=== PATIENT | female | born 1985 | race Caucasian/White ===

== ENCOUNTER 2016-11-09 10:07 | Emergency (ER) | payer OTHER ==
[~2016-11-09] VITALS: Ht 160 cm; Wt 88.4 kg
[~2016-11-09 10:07] MED LIST: ALBUAER2 PO; MOME220A INH; SUMA50TA15 PO
[2016-11-09 10:20] VITALS: TEMP 36.9; Ht 160 cm; Wt 88.4 kg
--- NOTE | 2016-11-09 10:43 | EMERGENCY ROOM VISIT NOTE ---
History Report prepared by Jose Alberto: Edu Frederick Under the Supervision of: Dr. Tacho Singh M.D. First contact with patient: 10:31 Chief Complaint: BACK PAIN Stated Complaint: 6 WKS. PREG., LOWER BACK/ABD PAIN History of Present Illness The patient is a 31 year old female that is five weeks five days who presents to the Emergency Room with complaints of persistent back pain since last night. The pain is rated 2/10 in severity. The patient also has pain in the suprapubic area. She denies any fevers, chills, urinary symptoms, problems moving her bowels, or vaginal bleeding. The patient is concerned about an ectopic . She was encouraged to come to the ED by her Seat Cover Installer. The was artificially inseminated. The patient had a quantitative BHCG of 1367 on 11/06. She is currently using progesterone vaginal suppositories. Source of History: patient Onset: last night Position: back Symptom Intensity: 2/10 Timing: other (persistent) Associated Symptoms: No chills, No fevers, No urinary symptoms Review of Systems All systems have been listed, reviewed, and are negative other than those previously mentioned. Please see Additional Medical History Sheet. Past Medical & Surgical Medical Problems: (1) Asthma (2) Kidney stones Family History Cancer Gallbladder disease Heart disease Hypertension Kidney disease Kidney stones Lung disease Social History Smoking Status: Never Smoker Alcohol Use: none Drug Use: none Marital Status: Housing Status: lives with family Occupation Status: employed Current/Historical Medications Scheduled Mometasone Furoate (Asmanex 120 Metered Doses), 1 PUFF INH BID Sumatriptan Succinate (Imitrex), 1 TAB PO UD Scheduled PRN Albuterol (Ventolin Hfa), 1 PUFF PO DAILY PRN for Shortness of Breath Allergies Coded Allergies: Tetracycline (Unverified Adverse Reaction, Intermediate, STOMACH ACHE, 11/09) Physical Exam Vital Signs Date Time Temp Pulse Resp B/P Pulse Ox O2 Delivery O2 Flow Rate FiO2 11/09/16 13:57 96 18 137/95 99 11/09/16 10:20 36.9 93 18 120/77 99 Room Air Physical Exam GENERAL: Patient awake, alert, oriented x 3. Patient follows commands. Patient does not appear toxic. Patient is adequately hydrated and well- nourished. SKIN: No erythema, pallor, cyanosis or rash HEENT: Ears normal. Oral cavity and posterior pharynx appear normal. Neck: Without adenopathy, no neck vein distention. LUNGS: Clear to auscultation. No wheezes, no rales, no rhonchi. HEART: No murmurs. No gallops. No rubs ABDOMEN: No masses, no rebound, no hepatomegaly or splenomegaly. Slight suprapubic tenderness. EXTREMITIES: No signs of trauma or infection. NEUROLOGIC: Cranial nerves II-XII within normal limits. No gross motor sensory function deficits. Medical Decision & Procedures ER Provider Diagnostic Interpretation: Radiology results as stated below per my review and radiologist interpretation: ULTRASOUND CLINICAL HISTORY: Back and pelvic pain. 5 weeks . COMPARISON STUDY: No previous studies for comparison. TECHNIQUE: Transabdominal and transvaginal sonography of the pelvis was performed. FINDINGS: The uterus measures 8.3 x 4.2 x 5.4 cm. The endometrium measures 1.3 cm in thickness. There is trace fluid within the endometrial canal. No intrauterine gestational sac is identified. No adnexal masses are identified. The right ovary measures 4.8 x 2.9 x 2.3 cm and contains a 2.2 cm complex cystic lesion. The left ovary measures 3.2 x 2.5 x 1.8 cm. Color flow is identified within each ovary. There was no free fluid. IMPRESSION: 1. No intrauterine gestational sac or adnexal mass identified. Assuming a positive test, differential considerations include a normal early intrauterine gestation, sonographically occult ectopic or missed spontaneous . Clinical follow-up, including serial beta hCG levels, is recommended. 2. Suspected right ovarian corpus luteal cyst. Electronically signed by: Bassam Stevens M.D. 11/09/2016 12:08 PM Dictated Date/Time: 11/09/2016 12:04 PM Laboratory Results 11/09/16 11:11 11/09/16 11:11 Test 11/09/16 11:00 11/09/16 11:11 Urine Color DK YELLOW Urine Appearance TURBID (CLEAR) Urine pH 5.5 (4.5-7.5) Urine Specific [place] 1.027 (1.000-1.030) Urine Protein NEG (NEG) Urine Glucose (UA) NEG (NEG) Urine Ketones 1+ (NEG) Urine Occult Blood NEG (NEG) Urine Nitrite NEG (NEG) Urine Bilirubin NEG (NEG) Urine Urobilinogen NEG (NEG) Urine Leukocyte Esterase TRACE (NEG) Urine WBC (Auto) 10-30 /hpf (0-5) Urine RBC (Auto) 10-30 /hpf (0-4) Urine Hyaline Casts (Auto) 1-5 /lpf (0-5) Urine Epithelial Cells (Auto) >30 /lpf (0-5) Urine Bacteria (Auto) 1+ (NEG) Urine Crystals (NONE PRSENT) Red Blood Count 4.75 M/uL (4.2-5.4) Mean Corpuscular Volume 93.3 fL (80-100) Mean Corpuscular Hemoglobin 33.1 pg (25-34) Mean Corpuscular Hemoglobin Concent 35.4 g/dl (32-36) RDW Standard Deviation 46.9 fL (36.4-46.3) RDW Coefficient of Variation 13.7 % (11.5-14.5) Mean Platelet Volume 11.8 fL (7.4-10.4) Anion Gap 11.0 mmol/L (3-11) Est Creatinine Clear Calc Drug Dose 130.6 ml/min Estimated GFR () 137.7 Estimated GFR (Non- 118.8 BUN/Creatinine Ratio 9.6 (10-20) Calcium Level 8.8 mg/dl (8.5-10.1) Human Chorionic Gonadotropin, Quant 5580 mIU/mL Chemistry Specimen Hemolysis Laboratory results as stated above per my review. ED Course 1030: Past medical records reviewed. The patient was evaluated in room A4b. A complete history and physical examination was performed. 1218: Explained the results to her. Attempting to get a hold of Dr. Buckner, her fertility doctor. 1338: Spoke with Dr. Buckner. He does not recommend any recommendations at this time. The patient should be advised to avoid intercourse and strenuous activity. She can follow up with him. 1344: Explained everything to her. She verbalized understanding and agreement of the treatment plan. The patient is ready for discharge. Medical Decision I considered multiple diagnoses including ectopic , musculoskeletal pain, pelvic pain secondary to . Patient is here with suprapubic pain. She is concerned about an ectopic . An ultrasound was obtained but was too early to show either an intrauterine or ectopic . Quantitative beta-hCG is significantly higher than it was only a few days ago. Case was discussed with her fertility systems analysis manager. Who suggested no further action is required at this time. The patient's urinalysis is consistent with a urinary tract infection. The patient will be treated with Keflex. Patient does have a corpus luteal cyst which could also be the source of her pain. A Prescription for Keflex was called to her pharmacy. Consults Time Called: 1230 Consulting Physician: Dr. Buckner, Engagement Executive Returned Call: [phone]: Spoke with Dr. Buckner. He does not recommend any recommendations at this time. The patient should be advised to avoid intercourse and strenuous activity. She can follow up with him. Impression Primary Impression: Pelvic pain affecting in first trimester, antepartum Additional Impression: Urinary tract infection affecting care of mother in first trimester, antepartum Scribe Attestation The scribe's documentation has been prepared under my direction and personally reviewed by me in its entirety. I confirm that the note above accurately reflects all work, treatment, procedures, and medical decision making performed by me. Departure Information Dispostion Home / Self-Care Referrals No Doctor, Assigned (PCP) Forms HOME CARE DOCUMENTATION FORM, IMPORTANT VISIT INFORMATION, Work Instructions Patient Instructions My [facility] Additional Instructions Follow-up with Dr. Buckner on Sunday. No lifting or straining or sexual intercourse until cleared by Dr. Buckner Return here immediately if the pain gets worse or you develop vaginal bleeding. Problem Qualifiers
[2016-11-09 11:20] LABS: HEMATOCRIT 44.3 % (37-47); MEAN CELL VOLUME 93.3 fL (80-100); MEAN CORPUSCULAR HEMOGLOBIN 33.1 pg (25-34); MEAN CORPUSCULAR HGB CONC 35.4 g/dl (32-36); MEAN PLATELET VOLUME 11.8 fL (7.4-10.4); PLATELET COUNT 217 K/uL (130-400); RED BLOOD COUNT 4.75 M/uL (4.2-5.4)
[2016-11-09 11:56] LABS: BUN/CREATININE RATIO 9.6 (10-20); CALCIUM 8.8 mg/dl (8.5-10.1); CREATININE 0.67 mg/dl (0.60-1.20); POTASSIUM 4.1 mmol/L (3.5-5.1)
--- NOTE | 2016-11-09 12:10 | DIAGNOSTIC IMAGING REPORT ---
ULTRASOUND CLINICAL HISTORY: Back and pelvic pain. 5 weeks . COMPARISON STUDY: No previous studies for comparison. TECHNIQUE: Transabdominal and transvaginal sonography of the pelvis was performed. FINDINGS: The uterus measures 8.3 x 4.2 x 5.4 cm. The endometrium measures 1.3 cm in thickness. There is trace fluid within the endometrial canal. No intrauterine gestational sac is identified. No adnexal masses are identified. The right ovary measures 4.8 x 2.9 x 2.3 cm and contains a 2.2 cm complex cystic lesion. The left ovary measures 3.2 x 2.5 x 1.8 cm. Color flow is identified within each ovary. There was no free fluid. IMPRESSION: 1. No intrauterine gestational sac or adnexal mass identified. Assuming a positive test, differential considerations include a normal early intrauterine gestation, sonographically occult ectopic or missed spontaneous . Clinical follow-up, including serial beta hCG levels, is recommended. 2. Suspected right ovarian corpus luteal cyst. Electronically signed by: Bassam Stevens M.D. 11/09/2016 12:08 PM Dictated Date/Time: 11/09/2016 12:04 PM
[2016-11-09 13:57] VITALS: BP 137/95; PULSE 96; O2SAT 99
[2016-11-09 14:20] LABS: URINE APPEARANCE TURBID (CLEAR); URINE BILIRUBIN NEG (NEG); URINE COLOR DK YELLOW; URINE EPITHELIAL CELL AUTO >30 /lpf (0-5); URINE NITRITE NEG (NEG); URINE PH 5.5 (4.5-7.5); URINE SPECIFIC GRAVITY 1.027 (1.000-1.030); UROBILINOGEN NEG (NEG); ZZUR CULT IF INDIC CLEAN CATCH YES
[2016-11-09 14:24] LABS: MANUAL MICROSCOPIC REQUIRED? NO; REVIEW REQ? YES
== END 2016-11-09 14:04 | disposition home or self-care (01) ==
LOC: C.EDB 10:09 → C.EDA 14:04
DX: O23.41 Unspecified infection of urinary tract in pregnancy, first trimester (principal); Z3A.01 Less than 8 weeks gestation of pregnancy

== ENCOUNTER → 2017-02-07 | Outpatient (CLI) | payer OTHER ==
[~2017-02-07] MED LIST changes: +VNTHFA/IN INH
--- NOTE | 2017-02-07 17:21 | DIAGNOSTIC IMAGING REPORT ---
VENOUS DOPPLER RIGHT ARM UPPER EXTREMITY VENOUS DOPPLER HISTORY: Pain. Edema. RIGHT UPPER ARM PAIN Right COMPARISON STUDY: None. FINDINGS: The internal jugular vein is patent. There is normal flow within the subclavian vein. There is normal flow and compressibility within the left axillary, basilic, brachial, radial, ulnar, and visualized cephalic veins. IMPRESSION: No DVT within the upper extremity. Electronically signed by: Terrance Birmingham M.D. 02/07/2017 5:19 PM Dictated Date/Time: 02/07/2017 5:19 PM
== END | disposition home or self-care (01) ==
LOC: C.ULTR 16:25
PROVIDERS: ATTEND Nurse Practitioner
DX: M79.621 Pain in right upper arm (principal)

== ENCOUNTER 2017-04-07 17:00 | Emergency (ER) | payer OTHER ==
[~2017-04-07] VITALS: Ht 157.5 cm; Wt 92.4 kg
[~2017-04-07 17:00] MED LIST changes: -VNTHFA/IN INH
[2017-04-07 17:01] VITALS: TEMP 37.1; Ht 157.5 cm; Wt 92.4 kg
[2017-04-07] MEDS ORDERED: VNTHFA/IN INH (17:38)
[2017-04-07] MEDS ORDERED: SUMA50TA15 PO (17:38)
[2017-04-07] MEDS ORDERED: MOME220A INH (17:38)
--- NOTE | 2017-04-07 18:42 | DIAGNOSTIC IMAGING REPORT ---
ULTRASOUND LEFT VENOUS DOPP LOWER EXT UNILAT CLINICAL HISTORY: Left leg swelling COMPARISON STUDY: No previous studies for comparison. FINDINGS: Real-time and color flow Doppler imaging were performed. Flow was seen within the femoral, popliteal and calf veins with no intraluminal thrombus demonstrated. The saphenous vein is patent. IMPRESSION: No evidence of left lower extremity DVT. Electronically signed by: Carter Orosco M.D. 04/07/2017 6:40 PM Dictated Date/Time: 04/07/2017 6:40 PM
--- NOTE | 2017-04-07 18:45 | EMERGENCY ROOM VISIT NOTE ---
ED Visit Note First contact with patient: 17:06 CHIEF COMPLAINT: Left calf pain since yesterday HISTORY OF PRESENT ILLNESS: Patient is a 31-year-old white female who presents emergency department for evaluation of left calf pain. She noticed some discomfort behind the left knee yesterday, but states that it worsened and became more constant today. She describes it as a cramping sensation behind her knee, radiating into the top of her calf. 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 She had a laparotomy and evacuation of an ectopic about 4 months ago. She is not presently on any hormone supplementation or control pills. There is no personal or family history of a DVT or PE. She does not smoke. No long car or plane trips recently. She has no symptoms in the right leg. She noticed a sensation of some left-sided chest squeezing earlier today. It was mild in nature, lasted her less than 30 minutes and at the present time she is asymptomatic regarding her chest complaints. She tried some Pepto-Bismol thinking that it could be GI related. She does also have a history of asthma. She denies any shortness of breath. No cough or wheezing. She is concerned about a clot in her leg. REVIEW OF SYSTEMS: Review of systems as per HPI. All other systems reviewed were negative. At least 6 systems reviewed. PMH: Electronic medical records are reviewed and summarized as above/below. See Problem List. SOCIAL HISTORY: Patient lives at home with her spouse. She does not smoke. She is employed. PHYSICAL EXAM: Vital Signs: Reviewed Nurse's notes. CONSTITUTIONAL: Patient is a pleasant, well-appearing 31-year-old white female who is awake and alert and in no acute distress. HEENT: Normocephalic, atraumatic. Pupils equal, round, reactive to light and accommodation. EOMs intact without nystagmus. Sclera are anicteric. Tympanic membranes intact, with normal landmarks. External canals are clear. Oral and nasopharynx are clear. Mucous membranes are moist. HEART: Regular rate and rhythm. LUNGS: Clear to auscultation and breath sounds equal, no wheezes, rales, or rhonchi. NEUROLOGICAL: Alert oriented, coherent. PERRL, EOMs full, gait normal. EXTREMITIES: No cyanosis, edema, joint tenderness or effusion. Pulses equal bilaterally. There is no increased redness, warmth or induration of the left calf. Tenderness is not reproducible to palpation. No cords can be palpated and Courtney's sign is negative. No rashes are noted. There is no lymphangitic streaking. Left knee is nontender to palpation. No joint effusion noted. Full range of motion. EMERGENCY DEPARTMENT COURSE: Patient was seen and evaluated as above. Her old records are reviewed. She presents emergency department for evaluation of some calf pain. She is concerned because she has a fairly sedentary job, otherwise does not have any other DVT or PE risk factors. Vital signs are stable. She is not tachycardic or tachypneic. Ultrasound of the left lower extremity did not demonstrate any evidence for DVT. Pulmonary embolus was felt to be unlikely. Differential diagnoses entertained include DVT, superficial thrombophlebitis, cellulitis, musculoskeletal injury, among others. The patient was reassured. She was educated on the worrisome signs or symptoms for which she should return to the emergency department. She is discharged home in good condition. ULTRASOUND LEFT VENOUS DOPP LOWER EXT UNILAT CLINICAL HISTORY: Left leg swelling COMPARISON STUDY: No previous studies for comparison. FINDINGS: Real-time and color flow Doppler imaging were performed. Flow was seen within the femoral, popliteal and calf veins with no intraluminal thrombus demonstrated. The saphenous vein is patent. IMPRESSION: No evidence of left lower extremity DVT. Medication reconciliation: I attest that I have personally reviewed the patient' s current medication list. Blood pressure screening : Patient was found to have normal blood pressure on screening and does not require follow-up. Problem List Medical Problems: (1) Asthma Status: Chronic (2) Headache Status: Resolved (3) Kidney stones Status: Resolved (4) Pelvic pain affecting in first trimester, antepartum Status: Resolved (5) Pelvic pain affecting in first trimester, antepartum Status: Resolved (6) Urinary tract infection affecting care of mother in first trimester, antepartum Status: Resolved Surgical Problems: (1) History of laparotomy Permanent Comment: Ruptured ectopic Status: Resolved Current/Historical Medications Scheduled Mometasone Furoate (Inhalation (Asmanex Twisthaler 120 Me), 1 PUFF INH BID Scheduled PRN Albuterol Hfa (Ventolin Hfa), 1 PUFFS INH QID PRN for Shortness of Breath Sumatriptan Succinate (Imitrex), 50 MG PO DIRECTED PRN for Migraine Allergies Coded Allergies: Tetracycline (Verified Adverse Reaction, Intermediate, STOMACH ACHE WITH VOMITING, 04/07/17) Vital Signs Date Time Temp Pulse Resp B/P (MAP) Pulse Ox O2 Delivery O2 Flow Rate FiO2 04/07/17 19:01 72 18 122/66 98 04/07/17 18:13 78 18 112/61 98 Room Air 04/07/17 17:01 37.1 89 20 125/67 99 Room Air Departure Information Impression Primary Impression: Pain of left calf Referrals No Doctor, Assigned (PCP) Patient Instructions My [facility] Additional Instructions Ibuprofen(Motrin, Advil) may be used for fever or pain. Use 600mg every six hours as needed. Take with food. Avoid using more than 2400mg in a 24 hour period. Do not use 2400mg per day for more than three consecutive days without physician direction. Prolonged inappropriate use can lead to stomach upset or ulcers. This medication can be taken if you need to drive, work, or perform activities which may be dangerous when taking narcotic pain medication. (AND/OR) Acetaminophen(Tylenol) may be used for fever or pain. Use 1000mg every six hours as needed. Avoid using more than 3000mg in a 24 hour period. This medication can be taken if you need to drive, work, or perform activities which may be dangerous when taking narcotic pain medication. Activity as tolerated. Continue current medications. Return to the ER immediately for worsening or persistent chest pain, vomiting, fevers, difficulty breathing, worsening of your condition, or as needed. Follow up with your primary physician in 2-3 days for a recheck of your current condition.
[2017-04-07 19:01] VITALS: BP 122/66; PULSE 72; O2SAT 98
== END 2017-04-07 19:02 | disposition home or self-care (01) ==
LOC: C.EDB 17:00
DX: M79.662 Pain in left lower leg (principal); J45.909 Unspecified asthma, uncomplicated

== ENCOUNTER 2017-07-22 19:41 | Emergency (ER) | payer OTHER ==
[~2017-07-22] VITALS: Ht 160 cm; Wt 93.6 kg
[~2017-07-22 19:41] MED LIST changes: -ALBUAER2 PO; +VNTHFA/IN INH
[2017-07-22 19:46] VITALS: Ht 160 cm; Wt 93.6 kg
--- NOTE | 2017-07-22 20:51 | EMERGENCY ROOM VISIT NOTE ---
History First contact with patient: 20:34 Chief Complaint: PELVIC PAIN Stated Complaint: SEVERE LOWER PELVIC PAIN, 1WK AFTER AI History of Present Illness The patient is a 31 year old female who presents to the Emergency Room with complaints of severe lower abdominal pain that she describes as a severe cramping sensation that started immediately after having an orgasm. The patient was having sex with her prior to arrival. She had an orgasm, and then felt this intense pain. She took an ibuprofen 800 mg, which helped slightly with the pain. She denies any bleeding. No discharge. The patient underwent artificial insemination [address] Esquivel at [facility]. Of note, the patient also has a history of a right ovarian ectopic for which she needed surgery in November of this year. She says that this pain feels similar. Review of Systems 10 system review performed and negative unless noted in HPI or below Past Medical/Surgical History Medical Problems: (1) Asthma (2) Headache (3) Kidney stones (4) Pelvic pain affecting in first trimester, antepartum (5) Pelvic pain affecting in first trimester, antepartum (6) Urinary tract infection affecting care of mother in first trimester, antepartum Surgical Problems: (1) History of laparotomy Status post ovarian ectopic Family History Cancer Gallbladder disease Heart disease Hypertension Kidney disease Kidney stones Lung disease Social History Smoking Status: Never Smoker Alcohol Use: none Drug Use: none Marital Status: Housing Status: lives with family Occupation Status: employed Current/Historical Medications Scheduled Mometasone Furoate (Inhalation (Asmanex Twisthaler 120 Me), 1 PUFF INH BID Scheduled PRN Albuterol Hfa (Ventolin Hfa), 2 PUFFS INH QID PRN for Shortness of Breath Sumatriptan Succinate (Imitrex), 50 MG PO UD PRN for Migraine Physical Exam Vital Signs Date Time Temp Pulse Resp B/P (MAP) Pulse Ox O2 Delivery O2 Flow Rate FiO2 07/22/17 23:55 83 18 120/72 96 Room Air 07/22/17 19:46 36.8 99 18 130/81 97 Room Air Physical Exam VITALS: Vitals are noted on the nurse's note and reviewed by myself. Vital signs stable. GENERAL: 31-year-old female, in no acute distress, nondiaphoretic, well- developed well-nourished. SKIN: The skin was without rashes, erythema, edema, or bruising. HEAD: Normocephalic atraumatic. HEART: Regular rate and rhythm without murmurs gallops or rubs. LUNGS: Clear to auscultation bilaterally without wheezes, rales or rhonchi. No accessory muscle use. ABDOMEN: Positive bowel sounds x 4.Soft, tenderness to palpation in the left lower quadrant and suprapubic region No rebound tenderness. MUSCULOSKELETAL: No muscle atrophy, erythema, or edema noted. Strength 5/5 throughout. NEURO: Patient was alert and oriented to person place and time. Normal sensation to touch. No focal neurological deficits. Medical Decision & Procedures ER Provider Diagnostic Interpretation: pelvic US IMPRESSION: 1. Bilateral ovarian hemorrhagic cysts 2. Free fluid within the pelvis containing a nonspecific 14 mm ovoid soft tissue nodule. Electronically signed by: Carter Orosco M.D. 07/22/2017 10:51 PM Dictated Date/Time: 07/22/2017 10:45 PM The status of this Laboratory Results 07/22/17 21:44 Red Blood Count 4.62, Mean Corpuscular Volume 92.4, Mean Corpuscular Hemoglobin 31.6, Mean Corpuscular Hemoglobin Concent 34.2, Mean Platelet Volume 11.0, Neutrophils (%) (Auto) 84.5, Lymphocytes (%) (Auto) 8.1, Monocytes (%) (Auto) 6.7, Eosinophils (%) (Auto) 0.2, Basophils (%) (Auto) 0.3, Neutrophils # (Auto) 13.65, Lymphocytes # (Auto) 1.31, Monocytes # (Auto) 1.09, Eosinophils # (Auto) 0.04, Basophils # (Auto) 0.05 07/22/17 21:44 Test 07/22/17 21:44 07/22/17 21:50 White Blood Count 16.18 K/uL (4.8-10.8) Red Blood Count 4.62 M/uL (4.2-5.4) Hemoglobin 14.6 g/dL (12.0-16.0) Hematocrit 42.7 % (37-47) Mean Corpuscular Volume 92.4 fL (80-100) Mean Corpuscular Hemoglobin 31.6 pg (25-34) Mean Corpuscular Hemoglobin Concent 34.2 g/dl (32-36) Platelet Count 280 K/uL (130-400) Mean Platelet Volume 11.0 fL (7.4-10.4) Neutrophils (%) (Auto) 84.5 % Lymphocytes (%) (Auto) 8.1 % Monocytes (%) (Auto) 6.7 % Eosinophils (%) (Auto) 0.2 % Basophils (%) (Auto) 0.3 % Neutrophils # (Auto) 13.65 K/uL (1.4-6.5) Lymphocytes # (Auto) 1.31 K/uL (1.2-3.4) Monocytes # (Auto) 1.09 K/uL (0.11-0.59) Eosinophils # (Auto) 0.04 K/uL (0-0.5) Basophils # (Auto) 0.05 K/uL (0-0.2) RDW Standard Deviation 43.5 fL (36.4-46.3) RDW Coefficient of Variation 12.9 % (11.5-14.5) Immature Granulocyte % (Auto) 0.2 % Immature Granulocyte # (Auto) 0.04 K/uL (0.00-0.02) Anion Gap 9.0 mmol/L (3-11) Est Creatinine Clear Calc Drug Dose 111.4 ml/min Estimated GFR () 113.8 Estimated GFR (Non- 98.1 BUN/Creatinine Ratio 14.6 (10-20) Calcium Level 8.7 mg/dl (8.5-10.1) Total Bilirubin 0.3 mg/dl (0.2-1) Aspartate Amino Transf (AST/SGOT) 12 U/L (15-37) Alanine Aminotransferase (ALT/SGPT) 15 U/L (12-78) Alkaline Phosphatase 78 U/L (45-117) Total Protein 7.7 gm/dl (6.4-8.2) Albumin 4.0 gm/dl (3.4-5.0) Globulin 3.7 gm/dl (2.5-4.0) Albumin/Globulin Ratio 1.1 (0.9-2) Human Chorionic Gonadotropin, Quant 20 mIU/mL Urine Color YELLOW Urine Appearance CLEAR (CLEAR) Urine pH 6.5 (4.5-7.5) Urine Specific [place] 1.022 (1.000-1.030) Urine Protein NEG (NEG) Urine Glucose (UA) NEG (NEG) Urine Ketones NEG (NEG) Urine Occult Blood NEG (NEG) Urine Nitrite NEG (NEG) Urine Bilirubin NEG (NEG) Urine Urobilinogen NEG (NEG) Urine Leukocyte Esterase NEG (NEG) ED Course Patient was seen and examined Vital signs including blood pressure were reviewed medications list was verified with patient Labs were obtained, and a saline lock was established The patient declined pain medication Imaging was performed and reviewed The findings were discussed with Dr. Hernandez, [employer] at [facility]. The patient was reassessed. Her pain was from a 10/10 to a 5/10. We discussed the results of her workup. She voiced understanding. She was comfortable being discharged home. The patient was given 1 dose of Tylenol 1 g I reviewed discharge instructions the patient. They voiced understanding and had no further questions. Medical Decision Differential diagnosis: Ovarian cyst, ovarian torsion, ectopic , severe menstrual cramping This patient is a 31-year-old female that presented to the emergency department complaining of severe lower abdominal pain following an orgasm/sexual intercourse. On exam, the patient was tender in the left lower quadrant. Her workup revealed a white count of 16,000. Her hCG is 20. The patient underwent artificial insemination 6 days ago. A pelvic ultrasound showed bilateral hemorrhagic cysts. It also showed free fluid in the cul-de-sac with a possible small nodule. These findings were discussed with the patient's [employer] service in [facility]. They did not think that this was consistent with an ectopic . They were also not concerned with the bilateral hemorrhagic cyst. The etiology of her pain is unclear. I do however feel that she is stable to be discharged home as her pain has improved during her emergency department stay. She does not have an acute abdomen. The patient will follow- up with her [employer] in [facility] tomorrow. She was comfortable with this plan. She was instructed to avoid NSAIDs. She will be instructed to take Tylenol for pain. She will return immediately to the emergency department with any worsening symptoms. This chart was completed in part utilizing [employer] Speech Voice Recognition software. Attempts were made to minimize the grammatical errors, random word insertions, pronoun errors and incomplete sentences. Any formal questions or concerns about the content, text or information contained within the body of this dictation should be directly addressed to the provider for clarification. Consults Consulting Physician: Dr. Hernandez/Dr. Buckner Impression Primary Impression: Pelvic pain Departure Information Dispostion Home / Self-Care Condition FAIR Referrals No Doctor, Assigned (PCP) Patient Instructions [facility] Additional Instructions You were evaluated in the emergency department with severe pelvic pain following intercourse. Please rest, no strenuous activity. Avoid sexual activity. Please call Dr. Buckner in the morning for a follow-up appointment. He will see you tomorrow. Please return to the emergency department immediately for any worsening symptoms such as increased pain, vaginal bleeding, lightheadedness or dizziness , or any other new concerning symptoms.
[2017-07-22 21:53] LABS: BASO % 0.3 %; BASO ABS # 0.05 K/uL (0-0.2); COMPLETE YES; EOS % 0.2 %; HEMATOCRIT 42.7 % (37-47); IG% 0.2 %; LYMPH % 8.1 %; LYMPH ABS # 1.31 K/uL (1.2-3.4); MEAN CELL VOLUME 92.4 fL (80-100); MEAN CORPUSCULAR HEMOGLOBIN 31.6 pg (25-34); MEAN CORPUSCULAR HGB CONC 34.2 g/dl (32-36); MONO % 6.7 %; NEUT % 84.5 %; PLATELET COUNT 280 K/uL (130-400); RED BLOOD COUNT 4.62 M/uL (4.2-5.4); WHITE BLOOD COUNT 16.18 K/uL (4.8-10.8)
[2017-07-22 21:58] LABS: URINE APPEARANCE CLEAR (CLEAR); URINE BILIRUBIN NEG (NEG); URINE COLOR YELLOW; URINE NITRITE NEG (NEG); URINE PH 6.5 (4.5-7.5); URINE SPECIFIC GRAVITY 1.022 (1.000-1.030); UROBILINOGEN NEG (NEG)
[2017-07-22 21:59] LABS: MANUAL MICROSCOPIC REQUIRED? NO; REVIEW REQ? NO
[2017-07-22 22:10] LABS: BUN/CREATININE RATIO 14.6 (10-20); CALCIUM 8.7 mg/dl (8.5-10.1); CREATININE 0.81 mg/dl (0.60-1.20); POTASSIUM 3.6 mmol/L (3.5-5.1)
[2017-07-22 22:13] LABS: ALB/GLOB RATIO 1.1 (0.9-2)
--- NOTE | 2017-07-22 22:52 | DIAGNOSTIC IMAGING REPORT ---
EXAMINATION: PELVIC ULTRASOUND (transabdominal and endovaginal scanning) CLINICAL HISTORY: severe pelvic pain after orgasm COMPARISON STUDY: 11/09/2016 FINDINGS: The uterus measured 6.8 x 3.7 x 5.1 cm. The endometrial stripe measured 1 cm. The right ovary measured 46 x 22 x 26 mm. There is a 19 mm right ovarian hemorrhagic cyst.. The left ovary measured 44 x 43 x 34 mm. There is a 29 mm left ovarian hemorrhagic cyst. There is no ultrasonographic evidence of ovarian torsion. It should be noted that ovarian torsion can be present with normal Doppler ultrasonographic findings. There is free fluid present within the cul-de-sac. Within the free fluid, is a 14 mm ovoid soft tissue nodule. This is of uncertain etiology. Although this structure resembles a pole, there was no associated placenta, and there was no cardiac activity. IMPRESSION: 1. Bilateral ovarian hemorrhagic cysts 2. Free fluid within the pelvis containing a nonspecific 14 mm ovoid soft tissue nodule. Electronically signed by: Carter Orosco M.D. 07/22/2017 10:51 PM Dictated Date/Time: 07/22/2017 10:45 PM
[2017-07-23] MEDS ORDERED: ACETAMINOPHEN 500 MG TAB PO STA (00:09)
[2017-07-23 00:49] VITALS: BP 121/71; PULSE 70; O2SAT 98
== END 2017-07-23 00:49 | disposition home or self-care (01) ==
LOC: C.EDB 19:43
DX: R10.2 Pelvic and perineal pain (principal); N83.201 Unspecified ovarian cyst, right side; N83.202 Unspecified ovarian cyst, left side; J45.909 Unspecified asthma, uncomplicated; Z87.440 Personal history of urinary (tract) infections; Z87.442 Personal history of urinary calculi; Z80.9 Family history of malignant neoplasm, unspecified; Z83.79 Family history of other diseases of the digestive system; Z82.49 Family history of ischemic heart disease and other diseases of the circulatory system; Z84.1 Family history of disorders of kidney and ureter

== ENCOUNTER 2017-10-09 19:50 | Emergency (ER) | payer OTHER ==
[~2017-10-09] VITALS: Ht 160 cm; Wt 93.8 kg
[2017-10-09 20:10] VITALS: TEMP 36.7; Ht 160 cm; Wt 93.8 kg
[2017-10-09] MEDS ORDERED: KETOROLAC TROMETHAMINE 30 MG/ML VIAL IV STA ×2 (21:12→22:20)
[2017-10-09] MEDS ORDERED: ONDANSETRON 8 MG/54 ML D5W IV STA (21:12)
[2017-10-09] MEDS ORDERED: SODIUM CHLORIDE 0.9% 1000ML 1,000 ML IV STA (21:12)
[2017-10-09 22:02] LABS: BASO % 0.6 %; BASO ABS # 0.07 K/uL (0-0.2); EOS % 1.1 %; EOS ABS # 0.12 K/uL (0-0.5); HEMATOCRIT 46.8 % (37-47); HEMOGLOBIN 16.3 g/dL (12.0-16.0); IG# 0.03 K/uL (0.00-0.02); LYMPH % 19.4 %; LYMPH ABS # 2.21 K/uL (1.2-3.4); MEAN CORPUSCULAR HEMOGLOBIN 32.4 pg (25-34); MEAN CORPUSCULAR HGB CONC 34.8 g/dl (32-36); MEAN PLATELET VOLUME 11.3 fL (7.4-10.4); MONO % 7.5 %; MONO ABS # 0.86 K/uL (0.11-0.59); NEUT % 71.1 %; NEUT ABS # 8.12 K/uL (1.4-6.5); PLATELET COUNT 285 K/uL (130-400); RED CELL DISTRIBUTION WIDTH CV 12.8 % (11.5-14.5); RED CELL DISTRIBUTION WIDTH SD 43.1 fL (36.4-46.3); WHITE BLOOD COUNT 11.41 K/uL (4.8-10.8)
[2017-10-09 22:30] LABS: CREATININE 0.74 mg/dl (0.60-1.20); POTASSIUM 3.8 mmol/L (3.5-5.1)
--- NOTE | 2017-10-09 22:41 | DIAGNOSTIC IMAGING REPORT ---
CT SCAN OF THE ABDOMEN AND PELVIS WITHOUT CONTRAST CLINICAL HISTORY: Right flank pain COMPARISON STUDY: No previous studies for comparison. TECHNIQUE: CT scan of the abdomen and pelvis was performed from the lung bases to the proximal femurs. Images are reviewed in the axial, sagittal, and coronal planes. IV contrast was not administered for this examination. A dose lowering technique was utilized adhering to the principles of ALARA. CT DOSE: 1308.90 mGy.cm FINDINGS: Lower chest: The heart is normal in size and configuration, without pericardial effusion. The lung bases and pleural spaces are clear. Liver: The unenhanced liver is normal in size, contour, and attenuation. There is no intrahepatic biliary ductal dilatation. Gallbladder: Surgically absent Spleen: Normal in size and attenuation. Pancreas: Unremarkable. Adrenal glands: Unremarkable. Kidneys: There are minimally hyperdense renal pyramids. There is a 4 mm proximal right ureteral calculus at the L3-4 level. There is only minimal fullness the right renal collecting system. Bowel: There are no transition zones indicate bowel obstruction. There is no acute diverticulitis. There is no evidence of acute appendicitis. Peritoneum: There is no intraperitoneal free air or abdominal ascites. Vasculature: The abdominal aorta is normal in course and caliber. Adenopathy: None. Pelvic viscera: The bladder, and pelvic viscera are unremarkable. Skeletal structures: No destructive osseous lesions are seen. IMPRESSION: 4 mm proximal right ureteral calculus with only minimal secondary obstructive change. Electronically signed by: Carter Orosco M.D. 10/09/2017 10:39 PM Dictated Date/Time: 10/09/2017 10:36 PM
[2017-10-09] MEDS ORDERED: FENTANYL CITRATE INJ 50 MCG/1 ML 2 ML VIAL IV STA (23:04)
[2017-10-09] MEDS ORDERED: OXYCODONE IR HOME PACK PO ONE (23:15)
[2017-10-09] MEDS ORDERED: PHENERGAN 25MG HOMEPACK PO ONE (23:15)
[2017-10-09] MEDS ORDERED: OXYC1TAB3 PO (23:51)
[2017-10-10 00:11] VITALS: BP 120/72; PULSE 91; O2SAT 98
--- NOTE | 2017-10-10 00:53 | EMERGENCY ROOM VISIT NOTE ---
History Report prepared by Jose Alberto: Harman Barnett Under the Supervision of: Dr. Betito Amin M.D. First contact with patient: 21:00 Chief Complaint: FLANK PAIN Stated Complaint: R SIDE PAIN History of Present Illness The patient is a 32 year old female who presents to the Emergency Room with complaints of waxing and waning sharp right flank pain that radiates to her back starting earlier today. She currently rates her discomfort as a 5/10 in severity The patient notes that she has a history of kidney stones, and this feels a little different than usual. She states that she usually has pain in her back that radiates into her groin. The patient additionally notes that she has some nausea, hematuria, and .light headedness from the pain. She states that she has had hydronephrosis in the past, and she has had two UTIs in the past. The patient states that her last menstrual cycle was two weeks ago and was normal. She has a history of a sponge kidneys, cholecystectomy, and a ruptured ectopic . Pt denies LOC, headache, fevers, chills, diaphoresis , visual changes, neck pain, chest pain, breathing difficulties, vomiting, melena, hematochezia, urinary burning, numbness, weakness, lymphadenopathy, rash , or other complaints. Source of History: patient Onset: earlier today Position: other (right flank) Symptom Intensity: 5/10 Quality: sharp Timing: waxes/wanes Associated Symptoms: + nausea, + urinary symptoms Review of Systems See HPI for pertinent positives and negatives. A total of ten systems were reviewed and were otherwise negative. Past Medical & Surgical Medical Problems: (1) Asthma (2) Headache (3) Kidney stones (4) Pelvic pain affecting in first trimester, antepartum (5) Pelvic pain affecting in first trimester, antepartum (6) Urinary tract infection affecting care of mother in first trimester, antepartum Surgical Problems: (1) History of laparotomy Family History Cancer Gallbladder disease Heart disease Hypertension Kidney disease Kidney stones Lung disease Social History Smoking Status: Never Smoker Alcohol Use: none Drug Use: none Marital Status: Housing Status: lives with family Occupation Status: employed Current/Historical Medications Scheduled Mometasone Furoate (Inhalation (Asmanex Twisthaler 120 Me), 1 PUFF INH BID Scheduled PRN Albuterol Hfa (Ventolin Hfa), 2 PUFFS INH QID PRN for Shortness of Breath Oxycodone Ir (Roxicodone Ir), 1-2 TAB PO Q4H PRN for Pain Sumatriptan Succinate (Imitrex), 50 MG PO UD PRN for Migraine Allergies Coded Allergies: Morphine (Verified Allergy, Unknown, Nausea, 07/22/17) Tetracycline (Verified Adverse Reaction, Intermediate, STOMACH ACHE WITH VOMITING, 04/07/17) Physical Exam Vital Signs Date Time Temp Pulse Resp B/P (MAP) Pulse Ox O2 Delivery O2 Flow Rate FiO2 10/10/17 00:11 91 18 120/72 98 10/09/17 21:55 88 18 129/84 99 Room Air 10/09/17 20:10 36.7 87 19 129/84 99 Room Air Physical Exam GENERAL: Awake, alert, well-appearing, in no distress HENT: Normocephalic, atraumatic. Oropharynx unremarkable. EYES: Normal conjunctiva. Sclera non-icteric. NECK: Supple. No nuchal rigidity. FROM. No JVD. RESPIRATORY: Clear to auscultation. CARDIAC: Regular rate, normal rhythm. Extremities warm and well perfused. Pulses equal. ABDOMEN: Right upper quadrant tenderness. Soft, non-distended.. No rebound or guarding. No masses. RECTAL: Deferred. MUSCULOSKELETAL: Right flank tenderness. Chest examination reveals no tenderness. The back is symmetrical on inspection without obvious abnormality. No joint edema. LOWER EXTREMITIES: Calves are equal size bilaterally and non-tender. No edema. No discoloration. NEURO: Normal sensorium. No sensory or motor deficits noted. SKIN: No rash or jaundice noted. Medical Decision & Procedures ER Provider Diagnostic Interpretation: Radiology results as stated below per my review and radiologist interpretation: CT SCAN OF THE ABDOMEN AND PELVIS WITHOUT CONTRAST CLINICAL HISTORY: Right flank pain COMPARISON STUDY: No previous studies for comparison. TECHNIQUE: CT scan of the abdomen and pelvis was performed from the lung bases to the proximal femurs. Images are reviewed in the axial, sagittal, and coronal planes. IV contrast was not administered for this examination. A dose lowering technique was utilized adhering to the principles of ALARA. CT DOSE: 1308.90 mGy.cm FINDINGS: Lower chest: The heart is normal in size and configuration, without pericardial effusion. The lung bases and pleural spaces are clear. Liver: The unenhanced liver is normal in size, contour, and attenuation. There is no intrahepatic biliary ductal dilatation. Gallbladder: Surgically absent Spleen: Normal in size and attenuation. Pancreas: Unremarkable. Adrenal glands: Unremarkable. Kidneys: There are minimally hyperdense renal pyramids. There is a 4 mm proximal right ureteral calculus at the L3-4 level. There is only minimal fullness the right renal collecting system. Bowel: There are no transition zones indicate bowel obstruction. There is no acute diverticulitis. There is no evidence of acute appendicitis. Peritoneum: There is no intraperitoneal free air or abdominal ascites. Vasculature: The abdominal aorta is normal in course and caliber. Adenopathy: None. Pelvic viscera: The bladder, and pelvic viscera are unremarkable. Skeletal structures: No destructive osseous lesions are seen. IMPRESSION: 4 mm proximal right ureteral calculus with only minimal secondary obstructive change. Electronically signed by: Carter Orosco M.D. 10/09/2017 10:39 PM Dictated Date/Time: 10/09/2017 10:36 PM Laboratory Results 10/09/17 21:45 Red Blood Count 5.03, Mean Corpuscular Volume 93.0, Mean Corpuscular Hemoglobin 32.4, Mean Corpuscular Hemoglobin Concent 34.8, Mean Platelet Volume 11.3, Neutrophils (%) (Auto) 71.1, Lymphocytes (%) (Auto) 19.4, Monocytes (%) (Auto) 7.5, Eosinophils (%) (Auto) 1.1, Basophils (%) (Auto) 0.6, Neutrophils # (Auto) 8.12, Lymphocytes # (Auto) 2.21, Monocytes # (Auto) 0.86, Eosinophils # (Auto) 0.12, Basophils # (Auto) 0.07 10/09/17 21:45 Test 10/09/17 21:34 10/09/17 21:45 Urine Color BROWN Urine Appearance CLOUDY (CLEAR) Urine pH 5.0 (4.5-7.5) Urine Specific [place] >= 1.030 (1.000-1.030) Urine Protein 2+ (NEG) Urine Glucose (UA) NEG (NEG) Urine Ketones 1+ (NEG) Urine Occult Blood 3+ (NEG) Urine Nitrite NEG (NEG) Urine Bilirubin NEG (NEG) Urine Urobilinogen NEG (NEG) Urine Leukocyte Esterase NEG (NEG) Urine RBC >30 /hpf (0-4) Urine WBC 1-5 /hpf (0-5) Urine Epithelial Cells >30 /lpf (0-5) Urine Bacteria 1+ (NEG) Urine Mucus PRESENT (NONE PRSENT) Urine Test NEG (NEG) White Blood Count 11.41 K/uL (4.8-10.8) Red Blood Count 5.03 M/uL (4.2-5.4) Hemoglobin 16.3 g/dL (12.0-16.0) Hematocrit 46.8 % (37-47) Mean Corpuscular Volume 93.0 fL (80-100) Mean Corpuscular Hemoglobin 32.4 pg (25-34) Mean Corpuscular Hemoglobin Concent 34.8 g/dl (32-36) Platelet Count 285 K/uL (130-400) Mean Platelet Volume 11.3 fL (7.4-10.4) Neutrophils (%) (Auto) 71.1 % Lymphocytes (%) (Auto) 19.4 % Monocytes (%) (Auto) 7.5 % Eosinophils (%) (Auto) 1.1 % Basophils (%) (Auto) 0.6 % Neutrophils # (Auto) 8.12 K/uL (1.4-6.5) Lymphocytes # (Auto) 2.21 K/uL (1.2-3.4) Monocytes # (Auto) 0.86 K/uL (0.11-0.59) Eosinophils # (Auto) 0.12 K/uL (0-0.5) Basophils # (Auto) 0.07 K/uL (0-0.2) RDW Standard Deviation 43.1 fL (36.4-46.3) RDW Coefficient of Variation 12.8 % (11.5-14.5) Immature Granulocyte % (Auto) 0.3 % Immature Granulocyte # (Auto) 0.03 K/uL (0.00-0.02) Anion Gap 9.0 mmol/L (3-11) Est Creatinine Clear Calc Drug Dose 121.0 ml/min Estimated GFR () 126.0 Estimated GFR (Non- 108.7 BUN/Creatinine Ratio 10.4 (10-20) Calcium Level 9.0 mg/dl (8.5-10.1) Total Bilirubin 0.4 mg/dl (0.2-1) Direct Bilirubin mg/dl (0-0.2) Aspartate Amino Transf (AST/SGOT) 21 U/L (15-37) Alanine Aminotransferase (ALT/SGPT) 31 U/L (12-78) Alkaline Phosphatase 82 U/L (45-117) Total Protein 8.0 gm/dl (6.4-8.2) Albumin 4.0 gm/dl (3.4-5.0) Lipase 125 U/L (73-393) Chemistry Specimen Hemolysis Laboratory results reviewed by me Medications Administered Medications (Trade) Dose Ordered Sig/[facility] Route Start Time Stop Time Status Last Admin Dose Admin Ondansetron HCl (Zofran 8mg Iv) 8 mg NOW STAT IV 10/09/17 21:12 10/09/17 21:15 DC 10/09/17 22:36 8 MG Sodium Chloride 1,000 ml @ 999 mls/hr Q1H1M STAT IV 10/09/17 21:12 10/09/17 22:12 DC 10/09/17 21:54 999 MLS/HR Ketorolac Tromethamine (Toradol Inj) 10 mg NOW STAT IV 10/09/17 21:12 10/09/17 21:15 DC 10/09/17 21:54 10 MG Ketorolac Tromethamine (Toradol Inj) 10 mg NOW STAT IV 10/09/17 22:20 10/09/17 22:21 DC 10/09/17 22:36 10 MG Promethazine HCl (Phenergan 25MG Home Pack) 1 homepack UD ONCE PO 10/09/17 23:15 10/09/17 23:16 DC 10/09/17 23:25 1 HOMEPACK Oxycodone HCl (Roxicodone Immediate Rel 5MG Home Pack) 1 homepack UD ONCE PO 10/09/17 23:15 10/09/17 23:16 DC 10/09/17 23:25 1 HOMEPACK ED Course 2100: The patient was evaluated in room A9. A complete history and physical exam was performed. 2111: Toradol 10mg IV, Sodium Chloride 1000 ml @ 999 mls/hr IV 0: Toradol 10mg IV 2259: I reevaluated the patient, and she is still having some pain. She wants a little bit of pain medication. 5: Oxycodone 5mg Home Pack PO, Phenergan 25mg Home Pack PO 2340: I reevaluated the patient. Discussed results and discharge instructions: he verbalized understanding and agreement. The patient is ready for discharge. Medical Decision Prior records/ancillary studies reviewed. Triage Nursing notes reviewed and agree them. The patient's history was concerning for flank and abdominal pain. Differential diagnosis: Etiologies such as renal colic, appendicitis, diverticulitis, mesenteric ischemia, aortic pathology, infections, inflammatory bowel disease, PUD, biliary pathology, UTI, as well as others were entertained. Physical examination findings: As above. ER treatment provided: IV Zofran IV Toradol 2 On reassessment the patient felt somewhat better. Her nausea was better. Fentanyl was ordered but the patient declined Diagnostic interpretation by me: The labs revealed an unremarkable CBC and chemistry panel. Urinalysis revealed hematuria. Urine culture pending. Imaging studies: CT of the abdomen and pelvis as above. It appears that the patient has isolated renal colic from a right sided stone.I gave my usual and customary discussion regarding this issue. By the evaluation outlined above emergent etiologies such as appendicitis, diverticulitis, mesenteric ischemia, aortic pathology, infections, inflammatory bowel disease, PUD, , biliary pathology, UTI, as well as others were deemed relatively unlikely. The patient and significant other were informed about the findings as listed above. All questions were answered and they were pleased with the treatment. Return instructions were outlined and the patient was discharged in stable condition. Outpatient prescription management: Oxy IR 5mg 1-2 po Q4 hrs prn Phenergan Referral: The pt was referred to [facility] for follow up care regarding their stone. [place] Drug Monitoring Program Search Results: patient reviewed within database, no issues identified Medication Reconcilliation Current Medication List: was personally reviewed by me Blood Pressure Screening Patient's blood pressure: Normal blood pressure Impression Primary Impression: Right ureteral stone Scribe Attestation The scribe's documentation has been prepared under my direction and personally reviewed by me in its entirety. I confirm that the note above accurately reflects all work, treatment, procedures, and medical decision making performed by me. Departure Information Dispostion Home / Self-Care Prescriptions Oxycodone Ir (Roxicodone Ir) 5 Mg Tab 1-2 TAB PO Q4H Y for Pain, #12 TAB Prov: Betito Amin MD 10/09/17 Referrals No Doctor, Assigned (PCP) Forms HOME CARE DOCUMENTATION FORM, IMPORTANT VISIT INFORMATION Patient Instructions My [facility] Additional Instructions KIDNEY STONE INSTRUCTIONS: Oxycodone Immediate Release (OxyIR) 5mg: Take 1-2 pills every four hours for pain. Avoid alcohol, operating machinery or dangerous equipment, working on ladders or roofs, DRIVING, or situations where being under the influence may be dangerous. It is recommended to use an [id number] stool softener such as Colace, 100mg twice daily while taking this medication to avoid constipation. Phenergan 25mg: Take one every six hours as needed for nausea. Avoid alcohol, operating machinery or dangerous equipment, working on ladders or roofs, DRIVING , or situations where being under the influence may be dangerous. Ibuprofen(Motrin, Advil) may be used for fever or pain. Use 600mg every six hours as needed. Take with food. Avoid using more than 2400mg in a 24 hour period. Do not use 2400mg per day for more than three consecutive days without physician direction. Prolonged inappropriate use can lead to stomach upset or ulcers. This medication can be taken if you need to drive, work, or perform activities which may be dangerous when taking narcotic pain medication. (AND/OR) Acetaminophen(Tylenol) may be used for fever or pain. Use 1000mg every six hours as needed. Avoid using more than 4000mg in a 24 hour period. This medication can be taken if you need to drive, work, or perform activities which may be dangerous when taking narcotic pain medication. Strain your urine and collect all the stones or debris for the urologists. Rest and avoid strenuous activity until your stone passes and symptoms resolve. Drink plenty of fluids. Return to the ER for worsening abdominal or back pain, vomiting, fevers, passing out, or as needed. Follow up with [facility] tomorrow, [phone], to arrange a visit.
== END 2017-10-10 00:12 | disposition home or self-care (01) ==
LOC: C.EDB 19:52 → C.EDA 10-10 00:12
DX: N20.1 Calculus of ureter (principal); R42 Dizziness and giddiness; J45.909 Unspecified asthma, uncomplicated; Z87.59 Personal history of other complications of pregnancy, childbirth and the puerperium; Z87.440 Personal history of urinary (tract) infections; Z87.442 Personal history of urinary calculi; Z90.49 Acquired absence of other specified parts of digestive tract; Z98.890 Other specified postprocedural states; Z82.49 Family history of ischemic heart disease and other diseases of the circulatory system; Z84.1 Family history of disorders of kidney and ureter

== ENCOUNTER 2018-10-22 18:50 | Inpatient (IN) ==
[2018-10-22] MEDS ORDERED: DINOPROSTONE 10 MG INSERT PV ONE (18:56)
[2018-10-22] MEDS ORDERED: OXYTOCIN 30 UNITS/500 ML BAG IV PRN (18:56)
[2018-10-22 19:37] LABS: Hematocrit (blood only) 37.9 % (37-47); Hemoglobin 12.8 g/dL (12.0-16.0); Mean Corpuscular Volume 93.6 fL (80-100); Mean Platelet Volume 13.5 fL (7.4-10.4); Platelet Count 152 K/uL (130-400); RDW Coefficient of Variation 13.6 % (11.5-14.5); RDW Standard Deviation 46.4 fL (36.4-46.3); Red Blood Count 4.05 M/uL (4.2-5.4); White Blood Count 11.06 K/uL (4.8-10.8)
[2018-10-22 19:43] LABS: Mean Corpuscular Hgb Conc 33.8 g/dL (32-36)
--- NOTE | 2018-10-22 20:15 | Labor Progress Brief Note ---
Date of Service October 22, 2018 Met pt and spouse doing well Induction for oligo. BERNA. 5.0 FHR; CAT1 Ctx 1-4mins , mild intensity VE; Ft/50/post Cervidil placed in vagina Physical Exam 2 Vital Signs (Past 24 Hours): Last Vital Signs Temp 36.9 C 10/22/18 19:28 Pulse 106 H 10/22/18 19:09 Resp 20 10/22/18 19:28 BP 133/84 10/22/18 19:09
[2018-10-22] MEDS ORDERED: CALCIUM CARBONATE 500 MG CHEWABLE TAB PO PRN (20:26)
[2018-10-22] MEDS ORDERED: MOMETASONE FUROATE 14 PUFF/1 INHALER INH SCH (21:00)
[2018-10-22] MEDS ORDERED: FLUCONAZOLE 100 MG TAB PO ONE (21:15)
--- NOTE | 2018-10-22 22:09 | History and Physical Report ---
DATE OF ADMISSION: 10/22/2018 HISTORY OF PRESENT ILLNESS: The patient is a 33-year-old G2, P0 due date 10/24/2018 making her 39 weeks and 5 days, presents to labor and delivery for induction of labor because of oligohydramnios. She had amniotic fluid index done yesterday and today and it has been 5. Decision was therefore made to induce the patient. The patient's has been unremarkable. The patient's is significant in the sense that this is an IVF . Otherwise, course has been unremarkable. LABS: Blood type A negative, antibody negative, rubella negative, GBS negative. PAST MEDICAL HISTORY: 1. History of asthma. 2. History of migraines. 3. Kidney stones. 4. Cholelithiasis. PAST SURGICAL HISTORY: History of colposcopy EGD, laparoscopy for cholecystectomy and exploration of abdomen. ALLERGIES: THE PATIENT ALLERGIC TO MORPHINE AND TETRACYCLINE. SOCIAL HISTORY: The patient denies tobacco, drug, or alcohol use. CUSTODY ASSISTANT HISTORY: This is patient's second . PHYSICAL EXAMINATION: GENERAL: Well-developed, well-nourished white female in no acute distress. HEART: S1, S2, regular rhythm and rate. LUNGS: Clear to auscultation bilaterally. ABDOMEN: Nontender, nondistended. Gravid. Bedside ultrasound done today in the office shows cephalic presentation. EXTREMITIES: No cyanosis, clubbing, or edema. ASSESSMENT AND PLAN: A 33-year-old G2, P0 at 39 weeks and 5 days, here for induction of labor for oligohydramnios, amniotic fluid index of 5. The patient has been admitted. Will start induction and anticipate vaginal delivery.
[2018-10-23] MEDS: LACTATED RINGER'S 1,000 ML IV SCH ×4 (08:29→21:04)
[2018-10-23] MEDS: FLUCONAZOLE 100 MG TAB PO SCH (08:53)
[2018-10-23] MEDS ORDERED: LACTATED RINGER'S 1,000 ML IV PRN ×2 (09:20→15:14)
[2018-10-23] MEDS ORDERED: OXYTOCIN 30 UNITS/500 ML BAG IV PRN ×2 (09:20→23:19)
--- NOTE | 2018-10-23 09:33 | Obstetrical Progress Note ---
Date of Service October 23, 2018 Subjective Patient is seen and examined She is known to me IOL for BERNA of 5 cm yesterday She received Cervidil and removed at 8 am She has been irregular ctxs No LOF/VB +FM's Reviewed her records from office No h/o HSV VSS Afebrile FHR categ I [place]: ctxs q2-5 min VE; 1/ 60%/ -3, posterior Discussed pain management, she desired epidural for pain initially but after the exam she desires IV meds first Plan to augment ctxs with Pitocin and Dilaudid for pain 9 used it in the past with no rx) EFW 8-9 lb US EFW 8.3 on 10/21 Physical Exam 2 Vital Signs (Past 24 Hours): Last Vital Signs Temp 36.5 C 10/23/18 06:58 Pulse 105 H 10/23/18 06:58 Resp 18 10/23/18 06:58 BP 115/69 10/23/18 06:58
[2018-10-23] MEDS ORDERED: HYDROmorphone INJ 0.5 MG/0.5 ML SYR IV STA (09:47)
[2018-10-23] MEDS: ONDANSETRON INJ 2 MG/ML 2 ML VIAL IV PRN ×2 (09:59→22:51)
[2018-10-23] MEDS: LACTATED RINGER'S 1,000 ML IV PRN ×2 (11:56→12:58)
[2018-10-23] MEDS ORDERED: BUPIVACAINE 0.25% 30 ML VIAL ONE (12:09)
[2018-10-23] MEDS ORDERED: fentaNYL 2MCG/ML ROPIV 1.25MG/ML 100 ML BAG EPI ONE (12:10)
[2018-10-23] MEDS ORDERED: fentaNYL citrate 100 MCG/2 ML VIAL ONE (12:10)
[2018-10-23] MEDS ORDERED: ePHEDrine sulfate 50 MG/ML AMP ONE (12:10)
--- NOTE | 2018-10-23 13:02 | Anesthesiology Consultation ---
Date of Service October 23, 2018 Assessment & Plan (1) Encounter for pre-operative examination: Chart Review Chart Review: Patient NOT seen in Pre Admission Testing and Acceptable Risk for Labor Epidural Consults Requested none ASA ASA2 Proposed Anesthesia Anesthesia Type: Labor Epidural and CSE Risk / Benefits Reviewed With: PT / POA / Parent / Guardian, Accepts Plan and Informed Consent Obtained NPO Date Last Intake of Fluids: 10/23/18 Time Last Intake of Fluids: 12:00 Date Last Intake of Solids: 10/23/18 Time Last Intake of Solids: 07:00 History Height/Weight Height: 5 ft 2 in Weight: 100.698 kg Allergies Allergy/AdvReac Type Severity Reaction Status Date / Time bee venom protein (honey bee) Allergy Severe Anaphylaxis Verified 10/03/18 20:18 morphine Allergy Severe Anaphylaxis Verified 10/22/18 19:19 tetracycline AdvReac Intermediate STOMACH Verified 10/03/18 19:50 ACHE WITH VOMITING Medications Home Medications Medication Instructions Recorded Confirmed Last Taken fluconazole 100 mg PO DAILY 10/22/18 10/22/18 Unknown mometasone [Asmanex HFA] 2 puff INHALATION BID 10/22/18 10/22/18 10/22/18 vit [id number] 1 tab PO DAILY 10/22/18 10/22/18 10/21/18 [ Vitamin] Active Medications Generic Name Dose Route Start Last Admin Trade Name Freq PRN Reason Stop Dose Admin Calcium Carbonate 1,000 mg 10/22/18 20:26 10/22/18 21:22 Tums PO 11/21/18 20:25 1,000 mg Q4 PRN Administration Indigestion Fluconazole 100 mg 10/23/18 09:00 10/23/18 08:53 Diflucan PO 11/02/18 08:59 100 mg QAM ED Administration Lactated Ringer's 1,000 mls @ 999 mls/hr 10/22/18 18:56 10/23/18 12:58 Lr IV 11/21/18 18:55 999 mls/hr .Q1H1M PRN Administration (Pre-Anesthesia) Lactated Ringer's 1,000 mls @ 125 mls/hr 10/22/18 19:00 10/23/18 11:56 Lr IV 10/24/18 18:59 999 mls/hr .Q8H ED Infusion Oxytocin 30 units in 500 mls @ 8 mls/hr 10/23/18 09:20 10/23/18 11:40 Pitocin IV 10/25/18 09:19 0.48 units/hr .Q24H PRN 8 mls/hr Labor Induction/Augmentation Titration Protocol 0.48 UNITS/HR Mometasone Furoate 2 puffs 10/22/18 21:00 10/22/18 21:22 Asmanex 220mcg INH 11/21/18 20:59 Not Given PM ED Ondansetron HCl 4 mg 10/23/18 09:28 10/23/18 09:59 Zofran IV 11/22/18 09:27 4 mg Q4H PRN Administration Nausea Past Medical History Medical History Urinary tract infection affecting care of mother in first trimester, antepartum (Resolved) Pelvic pain affecting in first trimester, antepartum (Resolved) Threatened miscarriage (Acute) UTI (urinary tract infection) (Acute) Migraines (Acute) Asthma (Chronic) scoliosis Past Family History Family History Other No pertinent family history Past Surgical History Surgical History H/O colposcopy with cervical biopsy Hx laparoscopic cholecystectomy Past Anesthesia History No Hx of Anesthesia Complications and No Family Hx of Anesthesia Complications History of PONV No Motion Sickness Screening History of Motion Sickness: No Social History Smoking Status: Never smoker Hx Alcohol Use: No Hx Substance Use: No substance use type: does not use Exercise / Class Metabolic Activity II 4-5 Yardwork/Stairs/Walk up hill no chest pain or sob Review of Systems no chest pain or sob Physical Exam Vital Signs Last Vital Signs Temp 36.7 C 10/23/18 10:35 Pulse 85 10/23/18 13:00 Resp 18 10/23/18 11:30 BP 100/55 L 10/23/18 12:28 Pulse Ox 99 10/23/18 13:00 Constitutional + obese ENMT Mouth: + dental restorations (Veneers) Thyromental Distance: > or= 3.5 Finger Breadths Mallampati Class: II Neck normal visual inspection Respiratory normal respiratory effort Cardiovascular Rate/Rhythm: regular rate and regular rhythm Musculoskeletal Spine: no pain with cervical ROM Neurologic moves all extremities Psychiatric Orientation: alert and oriented x 3 Testing Laboratory Results 10/22/18 19:11
--- NOTE | 2018-10-23 14:16 | Obstetrical Progress Note ---
Date of Service October 23, 2018 Subjective Patient is reevaluated She received epidural for pain c/o not feeling left arm well and unable to squeeze No pain nor ctxs Anesthesiology team is with her VSS Afebrile 02 sat 100% FHR was categ I, had decels after uterine ctxs q 1min Pitocin was stopped, IVF bolus had been going, Nasal O2 FHR 120-130's with good variability Her cervix was checked by her nurse and it was 2cm Continue to monitor closely Physical Exam 2 Vital Signs (Past 24 Hours): Last Vital Signs Temp 36.7 C 10/23/18 10:35 Pulse 104 H 10/23/18 14:06 Resp 18 10/23/18 11:30 BP 101/70 10/23/18 14:06 Pulse Ox 100 10/23/18 14:05
--- NOTE | 2018-10-23 14:53 | Obstetrical Progress Note ---
Date of Service October 23, 2018 Subjective Patient is reevaluated Her left arm feels bettter, able to grasp No pain nor ctxs VSS Afebrile FHR had been categ I, had 2 decels after uterine ctxs, with quich spontaneous recovery, still moderate variability Pitocin has been off, IVF bolus had been going, Nasal O2 VE: 3-4 cm/ 70%/ -2, AROM'ed msall amount of clear fluid came, fse applied FHR 120-130's with good variability Continue to monitor closely Physical Exam 2 Vital Signs (Past 24 Hours): Last Vital Signs Temp 36.7 C 10/23/18 10:35 Pulse 98 H 10/23/18 14:50 Resp 18 10/23/18 11:30 BP 111/61 10/23/18 14:33 Pulse Ox 82 L 10/23/18 14:50
[2018-10-23] MEDS ORDERED: DiphenhydrAMINE HCL 50 MG/ML VIAL IV PRN (15:14)
[2018-10-23] MEDS ORDERED: NALOXONE HCL 1 MG in SODIUM CHLORIDE 0.9% 1000ML 1,000 ML IV PRN (15:14)
[2018-10-23] MEDS ORDERED: NALOXONE HCL 0.4 MG/1 ML VIAL/CARP IV PRN (15:14)
[2018-10-23] MEDS ORDERED: ePHEDrine sulfate 50 MG/ML AMP IV PRN (15:14)
[2018-10-23] MEDS ORDERED: fentaNYL 2MCG/ML ROPIV 1.25MG/ML 100 ML BAG EPI PRN (15:14)
[2018-10-23] MEDS ORDERED: ONDANSETRON INJ 2 MG/ML 2 ML VIAL IV PRN (15:14)
--- NOTE | 2018-10-23 16:41 | Obstetrical Progress Note ---
Date of Service October 23, 2018 Subjective Patient is reevaluated Her left arm feels much better, able to grasp, 90% Started to feel ctxs Epidural was started VSS Afebrile FHR had been categ I, good moderate variability, no decel Pitocin has been off VE: 4 cm/ 70%/ -2, AROM'ed IUPC is placed Will start pitocin Continue to monitor closely Physical Exam 2 Vital Signs (Past 24 Hours): Last Vital Signs Temp 36.6 C 10/23/18 15:00 Pulse 108 H 10/23/18 16:35 Resp 18 10/23/18 11:30 BP 104/69 10/23/18 16:23 Pulse Ox 100 10/23/18 16:35
[2018-10-23] MEDS ORDERED: Nursing to Pharmacy Communication ONE (18:37)
--- NOTE | 2018-10-23 20:06 | Obstetrical Progress Note ---
Date of Service October 23, 2018 Subjective Patient is reevaluated She feels a lot of rectal pressure with pain VE; 4/ 80%/ 0, cones head FHR categ I [place]: ctxs q 2-3 min, 180-200 mvu in 10 min with IUPC She is afraid her epidural bolused due to earlier reaction She will change position to high fowlers Continue to monitor closely Physical Exam 2 Vital Signs (Past 24 Hours): Last Vital Signs Temp 37.3 C 10/23/18 19:01 Pulse 113 H 10/23/18 20:00 Resp 18 10/23/18 19:01 BP 111/59 L 10/23/18 19:46 Pulse Ox 97 10/23/18 20:00
[2018-10-23] MEDS ORDERED: BENZOCAINE 20% AER SPR 82.5 GM CAN EXT ONE (21:26)
[2018-10-23] MEDS ORDERED: CEFAZOLIN 2000MG 2,000 MG/15 ML SYR IV ONE (22:45)
[2018-10-23] MEDS ORDERED: HYDROmorphone INJ 1 MG/ML SYRINGE ONE (22:48)
[2018-10-23] MEDS ORDERED: HYDROCORTISONE ACETATE 25 MG SUPP PR PRN (23:19)
[2018-10-23] MEDS ORDERED: SUPERCREAM 0.870% 15 GM JAR EXT PRN (23:19)
[2018-10-23] MEDS ORDERED: DIPHTHERIA/TETANUS/PERTUSSIS 0.5 ML SYR/VIAL IM ONE (23:19)
[2018-10-23] MEDS ORDERED: ACETAMINOPHEN 325 MG TAB PO PRN (23:19)
[2018-10-23] MEDS ORDERED: BENZOCAINE 20% AER SPR 82.5 GM CAN EXT PRN (23:19)
[2018-10-23] MEDS ORDERED: BISACODYL 10 MG SUPP PR PRN (23:19)
[2018-10-23] MEDS ORDERED: METHYLERGONOVINE MALEATE 0.2 MG/ML AMP IM ONE (23:19)
[2018-10-23] MEDS ORDERED: TERBUTALINE SULFATE 1 MG/ML VIAL ONE (23:51)
--- NOTE | 2018-10-24 01:51 | Delivery Summary ---
DATE OF OPERATION: 10/23/2018 TIME OF DELIVERY OF PLACENTA: 2158 a.m. DETAILS OF DELIVERY: The patient was found to be fully dilated and desired to push. She pushed for about 15 minutes and the heart rate had prolonged deceleration to 70s to 80s and sometimes going up to 100s with good variability and head was and decision was made for episiotomy to facilitate the delivery of the head. A small right medial lateral episiotomy was opened head was delivered without difficulty. Shoulders came with the head with the same push. Baby was handed off to the mother and mouth and nose were suctioned. Cord was clamped x2 and cut. Baby was handed to the waiting it infrastructure specialist. Cord blood was obtained. Vagina and perineum were checked for lacerations. There was a small right mediolateral episiotomy which was opened earlier and there was a small left vaginal wall laceration. Rectal exam was done and confirmed to be second degree laceration. Excellent sphincter tone was noted. The gloves were changed. Those were repaired with 2-0 Vicryl in a running locked fashion and excellent hemostasis was achieved. Rectal exam was repeated, no sutures noted. The gloves were changed. The placenta was found to be in the vagina, delivered spontaneously as intact and complete. Uterus was explored and found that there were some pieces of membranes on the anterior surface of the uterus and some of them were retrieved with the hand, but some of them were not able to. The patient had epidural and she was also given 0.5 mg of Dilaudid for pain control A Bumm curette was guided with my left hand while the right hand was in the vagina, her nurse was providing fundal pressure. The uterine cavity was curetted and those pieces of membranes or placenta were retrieved completely and sent to pathology and then the uterus was explored manually again and found to be empty. Lower segment was cleared of all clots and debris. Fundus was firm. EBL was 300 ml. Then the vagina and labia were checked for lacerations. There was a small first degree right labial laceration, which was repaired with 3-0 Vicryl on SH needle. Excellent hemostasis was achieved. Mom and baby tolerated the procedure well. Sponge, lap, needle count were correct x3. Baby was a viable male infant, Apgars 8/9, weight was 3940 gr . No complications happened. I was present during whole procedure. The patient was given 2 grams of Cefazolin during procedure. I attest to the content of the Intraoperative Record and any orders documented therein. Any exceptions are noted below. MTDD
[2018-10-24] MEDS: IBUPROFEN 600 MG TAB PO PRN ×5 (03:21→21:46)
[2018-10-24] MEDS ORDERED: HYDROmorphone INJ 0.5 MG/0.5 ML SYR IV ONE (06:55)
[2018-10-24 07:05] LABS: Hematocrit (blood only) 29.7 % (37-47); Hemoglobin 9.9 g/dL (12.0-16.0); Mean Corpuscular Hgb Conc 33.3 g/dL (32-36); Mean Corpuscular Volume 94.3 fL (80-100); Mean Platelet Volume 12.9 fL (7.4-10.4); Platelet Count 137 K/uL (130-400); RDW Coefficient of Variation 13.8 % (11.5-14.5); RDW Standard Deviation 47.2 fL (36.4-46.3); Red Blood Count 3.15 M/uL (4.2-5.4); White Blood Count 17.89 K/uL (4.8-10.8)
--- NOTE | 2018-10-24 08:21 | Anesthesia Procedure Note ---
Date of Service October 24, 2018 Anesthesia Post Epidural Note Vital Signs Vital Signs: Temp Pulse Pulse Resp BP BP Pulse Ox 10/24/18 03:08 37 C 104 H 18 107/76 97 10/24/18 01:35 36.9 C 104 H 16 127/83 98 10/24/18 00:36 37 C 89 16 110/77 100 10/24/18 00:15 98 H 18 107/70 10/24/18 00:14 98 H 107/70 10/24/18 00:00 111 H 18 112/83 10/23/18 23:59 111 H 112/83 10/23/18 23:45 107 H 18 103/68 10/23/18 23:44 107 H 103/68 10/23/18 23:32 111 H 18 98/63 L 10/23/18 23:29 111 H 98/63 L 10/23/18 23:15 111 H 18 98/63 L 100 10/23/18 23:14 102 H 105/63 10/23/18 23:10 101 H 100 10/23/18 23:09 99 H 109/60 10/23/18 23:05 102 H 100 10/23/18 23:03 101 H 107/52 L 10/23/18 23:00 107 H 100 10/23/18 22:55 104 H 100 10/23/18 22:50 106 H 100 10/23/18 22:49 107 H 112/63 10/23/18 22:45 117 H 100 10/23/18 22:40 114 H 100 10/23/18 22:35 103 H 100 10/23/18 22:30 111 H 100 10/23/18 22:25 113 H 90 10/23/18 22:20 117 H 100 10/23/18 22:15 112 H 100 10/23/18 22:10 116 H 100 10/23/18 22:05 121 H 99 10/23/18 22:02 107 H 87 L 10/23/18 22:00 121 H 98 10/23/18 21:55 126 H 100 10/23/18 21:50 111 H 133/77 97 10/23/18 21:45 134 H 88 L 10/23/18 21:40 119 H 99 10/23/18 21:35 109 H 97 10/23/18 21:34 115 H 127/71 10/23/18 21:30 115 H 98 10/23/18 21:25 116 H 96 10/23/18 21:20 97 H 94 10/23/18 21:19 96 H 104/72 10/23/18 21:15 127 H 97 10/23/18 21:10 105 H 94 10/23/18 21:05 120 H 97 10/23/18 21:04 111 H 115/64 10/23/18 21:00 37.3 C 105 H 18 96 10/23/18 20:55 119 H 98 10/23/18 20:50 118 H 105/62 98 10/23/18 20:45 115 H 98 10/23/18 20:40 116 H 98 10/23/18 20:35 109 H 97 10/23/18 20:34 113 H 90/64 L 10/23/18 20:30 107 H 97 10/23/18 20:25 109 H 98 10/23/18 20:20 115 H 101/66 98 10/23/18 20:15 109 H 97 10/23/18 20:10 112 H 98 10/23/18 20:05 108 H 102/57 L 95 10/23/18 20:00 113 H 20 97 10/23/18 19:55 112 H 98 10/23/18 19:50 113 H 98 10/23/18 19:46 113 H 111/59 L 10/23/18 19:45 112 H 98 10/23/18 19:42 103 H 84/50 L 10/23/18 19:40 109 H 97 10/23/18 19:37 111 H 80/53 L 91 10/23/18 19:35 110 H 98 10/23/18 19:30 101 H 96 10/23/18 19:29 104 H 84/51 L 10/23/18 19:27 106 H 94 10/23/18 19:25 103 H 96 10/23/18 19:23 113 H 87/52 L 10/23/18 19:20 118 H 98 10/23/18 19:15 128 H 98 10/23/18 19:10 121 H 98 10/23/18 19:08 116 H 109/67 10/23/18 19:05 122 H 98 10/23/18 19:01 37.3 C 18 10/23/18 19:00 108 H 99 10/23/18 18:55 115 H 94 10/23/18 18:50 121 H 98 10/23/18 18:45 113 H 98 10/23/18 18:40 108 H 98 10/23/18 18:39 109 H 91/55 L 10/23/18 18:35 108 H 98 10/23/18 18:30 108 H 18 99 10/23/18 18:25 106 H 99 10/23/18 18:24 112 H 92/53 L 10/23/18 18:20 102 H 98 10/23/18 18:15 111 H 99 10/23/18 18:10 105 H 97 10/23/18 18:09 103 H 91/51 L 10/23/18 18:05 106 H 99 10/23/18 18:00 102 H 18 99 10/23/18 17:55 105 H 98 10/23/18 17:54 110 H 93/59 L 10/23/18 17:50 106 H 100 10/23/18 17:45 91 H 98 10/23/18 17:40 98 H 98 10/23/18 17:38 107 H 86/54 L 10/23/18 17:35 98 H 99 10/23/18 17:30 106 H 18 97 10/23/18 17:27 103 H 90/51 L 10/23/18 17:26 107 H 87/51 L 10/23/18 17:25 90 93 10/23/18 17:20 91 H 99 10/23/18 17:15 93 H 99 10/23/18 17:10 88 98 10/23/18 17:08 92 H 87/51 L 86 L 10/23/18 17:05 93 H 100 10/23/18 17:00 96 H 99 10/23/18 16:55 91 H 98 10/23/18 16:54 36.7 C 88 18 95/52 L 93 10/23/18 16:50 36.7 C 88 99 10/23/18 16:47 102 H 86/50 L 10/23/18 16:46 91 H 92 10/23/18 16:45 110 H 98 10/23/18 16:40 102 H 85 L 10/23/18 16:38 107 H 84 L 10/23/18 16:35 108 H 100 10/23/18 16:30 104 H 99 10/23/18 16:25 99 H 100 10/23/18 16:23 100 H 104/69 10/23/18 16:20 101 H 99 10/23/18 16:15 101 H 100 10/23/18 16:10 105 H 99 10/23/18 16:09 106 H 103/61 10/23/18 16:05 109 H 100 10/23/18 16:03 106 H 92 10/23/18 16:00 99 H 98 10/23/18 15:55 96 H 100 10/23/18 15:52 100 H 93/62 L 10/23/18 15:50 87 100 10/23/18 15:45 96 H 100 10/23/18 15:43 93 H 88/49 L 10/23/18 15:40 96 H 89/53 L 100 10/23/18 15:37 101 H 92/57 L 10/23/18 15:35 95 H 94/52 L 100 10/23/18 15:32 86 92/55 L 89 L 10/23/18 15:30 99 H 100 10/23/18 15:25 91 H 90/55 L 100 10/23/18 15:23 87 90/54 L 10/23/18 15:20 88 88/50 L 100 10/23/18 15:15 97 H 100 10/23/18 15:14 99 H 96/53 L 10/23/18 15:13 99 H 81 L 10/23/18 15:10 99 H 100 10/23/18 15:06 85 91 10/23/18 15:05 95 H 100 10/23/18 15:00 36.6 C 86 100 10/23/18 14:57 80 95/55 L 10/23/18 14:55 98 H 100 10/23/18 14:52 89 89/52 L 10/23/18 14:50 98 H 82 L 10/23/18 14:48 88 91 10/23/18 14:45 92 H 99 10/23/18 14:40 99 H 93 10/23/18 14:35 110 H 100 10/23/18 14:33 97 H 111/61 10/23/18 14:31 99 H 108/59 L 10/23/18 14:30 111 H 97 10/23/18 14:29 104 H 114/62 10/23/18 14:28 106 H 133/61 10/23/18 14:26 120 H 177/95 H 10/23/18 14:25 105 H 96 10/23/18 14:24 103 H 98/68 L 10/23/18 14:21 89 107/64 10/23/18 14:20 94 H 97 10/23/18 14:19 99 H 103/62 10/23/18 14:17 101 H 100/57 L 10/23/18 14:16 96 H 108/61 10/23/18 14:15 96 H 98 10/23/18 14:13 98 H 112/70 10/23/18 14:11 84 107/63 10/23/18 14:10 96 H 104/69 100 10/23/18 14:07 97 H 102/72 10/23/18 14:06 104 H 101/70 10/23/18 14:05 99 H 100 10/23/18 14:03 91 H 101/60 10/23/18 14:01 96 H 106/62 10/23/18 14:00 91 H 100 10/23/18 13:59 96 H 110/61 10/23/18 13:58 94 H 121/61 10/23/18 13:55 91 H 100 10/23/18 13:52 75 94/55 L 10/23/18 13:50 78 91/52 L 100 10/23/18 13:47 78 100/59 L 89 L 10/23/18 13:45 83 95 10/23/18 13:42 80 93 10/23/18 13:40 79 95 10/23/18 13:35 84 97 10/23/18 13:34 84 92 10/23/18 13:30 88 96 10/23/18 13:28 96 H 91 10/23/18 13:25 103 H 109/57 L 97 10/23/18 13:23 104 H 111/62 10/23/18 13:21 93 H 112/58 L 10/23/18 13:20 98 H 98 10/23/18 13:19 88 114/58 L 10/23/18 13:18 160 H 119/65 10/23/18 13:15 95 H 116/68 96 10/23/18 13:13 95 H 125/74 10/23/18 13:12 96 H 131/81 10/23/18 13:10 90 98 10/23/18 13:06 103 H 126/76 10/23/18 13:05 97 H 100 10/23/18 13:00 85 99 10/23/18 12:55 83 99 10/23/18 12:40 73 90 10/23/18 12:35 73 97 10/23/18 12:30 90 99 10/23/18 12:28 74 100/55 L 10/23/18 12:27 78 94 10/23/18 12:25 88 98 10/23/18 12:20 81 96 10/23/18 12:15 83 99 10/23/18 12:10 91 H 96 10/23/18 12:07 100 H 132/88 10/23/18 12:05 86 98 10/23/18 11:34 88 102/56 L 10/23/18 11:30 18 10/23/18 10:38 77 97/56 L 10/23/18 10:35 36.7 C 10/23/18 10:26 18 Pain Intensity Abdomen: Pain Intensity: 2 Notes Mental Status: alert / awake / arousable Nausea / Vomiting: adequately controlled Pain: adequately controlled Airway Patency, RR, SpO2: stable & adequate BP & HR: stable & adequate Hydration State: stable & adequate Neuraxial Anesthesia: was administered Anesthetic Complications: no major complications apparent Epidural: Removed without complications and With tip intact Notes: Pt had temporary high epidural that has resolved w/o incident.
--- NOTE | 2018-10-24 08:25 | Obstetrical Progress Note ---
Date of Service October 24, 2018 Subjective doing well Physical Exam 2 Vital Signs (Past 24 Hours): Last Vital Signs Temp 37 C 10/24/18 03:08 Pulse 104 H 10/24/18 03:08 Resp 18 10/24/18 03:08 BP 107/76 10/24/18 03:08 Pulse Ox 97 10/24/18 03:08 Constitutional: WD/WN, vitals as above comfortable Gastrointestinal (Abdomen): Percussion/Palpation: abdomen soft fundus firm no edema ne Courtney's Results & Data Laboratory Results Laboratory Results - last 24 hr 10/24/18 10/24/18 06:27 06:27 WBC 17.89 H RBC 3.15 L Hgb 9.9 L Hct 29.7 L MCV 94.3 MCH 31.4 MCHC 33.3 RDW Std Deviation 47.2 H RDW Coeff of Claudia 13.8 Plt Count 137 MPV 12.9 H HIV 1&2 Ab/P24 Ag 4thGn Neg PPD #1 tent d/c in AM
[2018-10-24] MEDS: PRENATAL VITAMIN 1 TAB PO SCH (09:20)
[2018-10-24] MEDS: FERROUS SULFATE 325 MG TAB PO SCH (09:20)
[2018-10-24] MEDS: DOCUSATE SODIUM 100 MG CAP PO SCH ×2 (09:20→21:23)
[2018-10-24] MEDS: FLUCONAZOLE 100 MG TAB PO SCH (09:21)
[2018-10-24] MEDS ORDERED: BISACODYL 5 MG TABEC PO SCH (20:00)
[2018-10-25] MEDS: IBUPROFEN 600 MG TAB PO PRN ×3 (02:22→11:46)
[2018-10-25 07:14] LABS: Hemoglobin 9.3 g/dL (12.0-16.0)
[2018-10-25] MEDS: PRENATAL VITAMIN 1 TAB PO SCH (07:24)
[2018-10-25] MEDS: FERROUS SULFATE 325 MG TAB PO SCH (07:24)
[2018-10-25] MEDS: FLUCONAZOLE 100 MG TAB PO SCH (07:24)
[2018-10-25] MEDS: DOCUSATE SODIUM 100 MG CAP PO SCH (07:24)
[2018-10-25 08:54] VITALS: BP 97/64; PULSE 84; TEMP 98.8; O2SAT 97
--- NOTE | 2018-10-25 10:07 | Obstetrical Progress Note ---
Date of Service October 25, 2018 Assessment & Plan (1) normal course: PPd #2 pt doing well d/c home with instructions Subjective Ambulation: ambulating normally Voiding: no voiding problems Passing Gas:: Yes Diet Tolerance:: regular diet Lochia:: Small Feeding Type:: breast feeding Review of Systems All systems reviewed & are unremarkable except as noted in HPI & below Physical Exam Vital Signs (Past 24 Hours) Last Vital Signs Temp 37.1 C 10/25/18 08:00 Pulse 84 10/25/18 08:00 Resp 18 10/25/18 08:00 BP 97/64 L 10/25/18 08:00 Pulse Ox 97 10/25/18 08:00 Constitutional WD/WN, vitals as above well developed and well nourished Eyes PERRL, conjunctivae normal, anicteric sclerae Neck trachea midline, no thyromegaly Respiratory normal respiratory effort, lungs clear to auscultation Auscultation: no crackles, no rales and no wheezes Cardiovascular RRR, no murmur, no edema Gastrointestinal (Abdomen) normal bowel sounds, soft, nontender, no hepatosplenomegaly Uterus is below umbilicus Musculoskeletal no cyanosis or clubbing, extremities motor strength 5/5 Skin no rashes, warm and dry Neurologic patellar DTR's 2+ bilat, sensation intact Psychiatric A+Ox3, euthymic affect Genitourinary normal external appearance
[2018-10-25] MEDS ORDERED: MEASLES, MUMPS & RUBELLA VIRUS VIAL SQ ONE (12:36)
== END 2018-10-25 13:10 | disposition home or self-care (01) | DRG 807 ==
LOC: 4S1 18:50 → 4S2 10-24 00:21